=== PATIENT | female | born 1980 | race Caucasian/White ===

== ENCOUNTER 2017-07-28 01:03 | Emergency (ER) | payer OTHER ==
[~2017-07-28] VITALS: Ht 170.2 cm; Wt 88.6 kg
[~2017-07-28 01:03] MED LIST: ALB083NB3 HHN; SYN25 PO; VIS25 PO
[2017-07-28 01:12] VITALS: BP 126/93; PULSE 98; RESP 18; O2SAT 100
--- NOTE | 2017-07-28 01:18 | ED.REPORT ---
HPI- Female Date of Service Jul 28, 2017 ED Provider: Obinna Soto DO Pt is an otherwise healthy 36 year old female who presents ot the ED complaining of heavy vaginal bleeding onset 19:00 today. She is otherwise asymptomatic. Pt reports that she had a normal vaginal delivery 5 days ago. The pt presented to [facility] with her symptoms and she was referred to the ED for an ultrasound. Per pt, she has used 16-20 pads since her symptoms started. She denies a history of HTN and DM. Nursing Notes Stated Complaint: BLEEDING Chief Complaint: Female Abdominal Pain Nursing Notes Reviewed: Yes Allergies: Coded Allergies: No Known Allergies (Unverified Allergy, 08/30/12) Scheduled Levothyroxine-Expunged Drug, Do Not Renew! (Synthroid-Expunged Drug, Do Not Renew!) 25 Mcg Tablet 0.025 MG PO DAILYAC 0.025 MG = 25 MCG Miscellaneous Medications Albuterol-Expunged Drug, Do Not Renew! (Albuterol-Expunged Drug, Do Not Renew!) 0.83 Mg/Ml Nebu 2.5 MG HHN hydrOXYzine Génesis-Expunged Drug, Do Not Renew! (Vistaril-Expunged Drug, Do Not Renew!) 25 Mg Capsule 25 MG PO General Time Seen by MD: 01:17 Chief Complaint Vaginal bleeding... (Moderate) Hx Obtained From: Patient Arrived By: Walk-in Sudden in Onset?: No Onset Occurred: 5 - 8 hours ago Symptom Duration: Since onset Severity: Current: No pain currently Severity: Maximum: No pain Recent Healthcare: Recent doctor visit Similar Sx Previous: No Past Medical History Past Medical History Uncomplicated vaginal delivery 5 day ago Denies: Diabetes mellitus, Hypertension Past Surgical History Denies Smoking History Unknown if Ever Smoker Social History Other Social History: Good social support, Lives with children Ambulatory Status Independent Review of Systems Constitutional: Denies: Fever Female: Reports: Vaginal bleeding - abnl Complete sys rev & neg: except as marked. Respiratory: Denies: Non-productive cough, Shortness of breath Physical Exam Initial Vital Signs Vital Signs (First) Date Time Temp Pulse Resp B/P Pulse Ox O2 Delivery O2 Flow Rate FiO2 07/28/17 01:12 36.3 98 18 126/93 100 Room Air Initial VS: Reviewed Head / Eyes: Atraumatic, Normocephalic Neck: Supple, Full range of motion Respiratory: Breath sounds normal, Clear to auscultation, No respiratory distress Cardiovascular: Regular rate & rhythm, Heart sounds normal, Intact distal pulses Abdomen / GI: Soft, Non-tender Extremities: Vascular intact, Neuro intact Skin: Warm, Dry, No cyanosis Neurologic: Alert, Oriented, Nonfocal Psychiatric: Mood/affect normal, Behavior normal FEMALE : OS is open. The uterus seems mildly contracted. No active bleeding right now. General/Constitutional: Awake, Alert Interpretation & Diagnostics US: Large uterus with retained products of conception on lower uterine segment Lab Results Interpretation Result Diagram: 07/28/17 0132 Test 07/28/17 01:32 White Blood Count 10.2th/mm3 (3.8-10.1) Red Blood Count 3.40mil/mm3 (3.90-5.20) Hemoglobin 9.9g/dL (12.0-15.6) Hematocrit 29.7% (35.0-46.0) Mean Corpuscular Volume 87.4fL (81-100) Mean Corpuscular Hemoglobin 29.1pg (27.0-35.0) Mean Corpuscular Hemoglobin Concent 33.3% (32.0-37.0) Red Cell Distribution Width 13.1% (12.3-15.4) Platelet Count 346bil/L (150-400) Neutrophils (%) (Auto) 78.2% (40-74) Lymphocytes (%) (Auto) 16.8% (14-46) Monocytes (%) (Auto) 3.5% (4-12) Eosinophils (%) (Auto) 1.0% (0-5) Basophils (%) (Auto) 0.2% (0-3) Hold Gaines Top Tube Received (Received) Re-Eval/Medical Decision Med Decision/Clinical Course Pelvic exam shows the bleeding to stop. I checked twice. No active bleeding. Uterus feels to be contracted. Ultrasound is suspicious for retained products of conception. Gynecology consultation over the phone appreciated. We will have follow-up and the brake drum lathe operator office today. Currently there is no active hemorrhage so urgent follow-up today is clearly indicated. Patient's vital signs are stable. Her hemoglobin is roughly 10. She feels well and is no longer bleeding. She will return if any problems or any worsening symptoms. Source of Hx: Old records Re-Evaluation/Progress #1: Time of Eval: 02:03 Re-Evaluation/Progress Note: Pt rechecked. Informed pt of US results. Pelvic exam with patient's consent. All questions addressed. Re-Evaluation/Progress #2: Time of Eval: 02:20 Re-Evaluation/Progress Note: Pt rechecked. Informed pt of consult with Dr. Beach. Informed pt of plan for discharge. Pt understands and agrees with plan for discharge. F/U instructions and RTER warnings given. All questions addressed. Consultation : Referral / Consult Name: Celine Beach MD Call Returned at: 02:17 Catalogue Maker: Agrees with eval, Agrees with plan Note: Consulted with OBGYN. Discussed pt's case. Since the pt has a stable hnh and there is no active bleeding, recommends that the pt call the office at 08:00 today for a DNC. Counseled Regarding: Diagnosis, Need for follow-up, When/why to return to ED Discharge & Departure Impression: Primary Impression: bleeding hemorrhage type: delayed hemorrhage Qualified Code: O72.2 - Delayed and secondary hemorrhage Additional Impression: Retained products of conception Disposition: Home Discharge Condition All VS Reviewed: Yes Condition: Stable Patient Instructions: Bleeding (DC) Additional Instructions: Rest tonight. On exam it looks like the bleeding has resolved. The ultrasound however shows that you most likely have retained products of conception and you might need a D&C. I consulted with our on-call database designer. She would like you to be seen today in the office. Call the office at 8 AM for the time. In the meanwhile if you soak more than a pad an hour for 4 straight hours , you need to come back to the emergency department or call the on-call chimney repairer. Continue to breast feed as normal. Do not hesitate to come back sooner if you have any problems or any new or worrisome symptoms. Referrals: Donna Boogie CNM (PCP) Celine Beach MDibbrenda Attestation Portions of this note were transcribed by Myah Lora. I, Dr. Soto personally performed the history, physical exam and medical decision-making; I reviewed and confirmed the accuracy of the information in the transcribed note. Signed by : Alexander Brown, 07/27/17. copies to: Donna Boogie CNM; Celine Beach MD, Todd P DO Jul 28, 2017 01:18 Myah Esqueda Jul 28, 2017 01:26
[2017-07-28 01:42] LABS: BASOPHILS % (AUTO) 0.2 % (0-3); MONOCYTES % (AUTO) 3.5 % (4-12); Mean Corpuscular Hemoglobin 29.1 pg (27.0-35.0); Mean Corpuscular Volume 87.4 fL (81-100); NEUTROPHILS % (AUTO) 78.2 % (40-74); Platelet Count 346 bil/L (150-400)
[2017-07-28 02:43] VITALS: BP 114/77; PULSE 87; RESP 18; O2SAT 97
--- NOTE | 2017-07-28 08:04 | DRSVH ---
PROCEDURE: US PELVIC SONOGRAM INDICATIONS: hemorrhage TECHNIQUE: Real-time scanning was performed of the pelvic organs, with image documentation. Additional endovagi nal scanning was necessary due to incomplete visualization of the adnexal and endometrial structures by transabdominal scanning. COMPARISON: [facility] Ultrasound, US, US OB DETAIL ANATOMY, 02/27/2017, 17:05. FINDINGS: PELVIS MEASUREMENTS: Uterus dimensions (orthrogonal): 14.35 cm, 10.33 cm, 6.64 cm Endometrium Thickness: 1.09 cm There is a ill-defined area of mixed echogenicity near the internal os which measures 3.7 x 1.5 x 1.6 CM Right Ovary dimensions (orthogonal): 2.03 cm, 2.63 cm, 2.71 cm There is a possible mixed echogenicity mostly cystic 1.4 cm mass. Left Ovary dimensions (orthogonal): 2.3 x 1.2 x 2.3 cm Kidneys are grossly normal. IMPRESSION: 1. Area of mixed echogenicity near the internal os as described above is indeterminate and may repres ent clot or less likely retained products of conception. 2. Enlarged uterus. 3. Ill-defined right ovarian complicated cyst. 4. There are no discrepancies with the preliminary report. Dictated by: Tay Johnson M.D. on 07/28/2017 at 7:58 Approved by: Tay Johnson M.D. on 07/28/2017 at 8:02
== END 2017-07-28 02:45 | disposition home or self-care (01) ==
LOC: SED 01:03
DX: O72.2 Delayed and secondary postpartum hemorrhage (principal)
CPT/HCPCS: 36415; 76856; 85025; 99284; G0463